=== PATIENT | female | born 1995 | race Two or more races ===

== ENCOUNTER → 2023-01-05 | Outpatient (CLI) | payer MEDICAID ==
[2023-01-05 10:46] LABS: Basophils # (auto) 0 10 ^3/uL (0-0.2); Basophils % (auto) 0.3 % (0.0-2.0); Eosinophils # (auto) 0 10 ^3/uL (0-0.8); Eosinophils % (auto) 0.2 % (0.0-7.0); Hematocrit 40.1 % (36.0-46.0); Hemoglobin 13.7 g/dL (12.2-16.2); Lymphocytes # (auto) 1.8 10 ^3/uL (0.4-5.4); Lymphocytes % (auto) 16.7 % (10.0-50.0); Mean Corpuscular Hemoglobin 31.6 pg (28.0-32.0); Mean Corpuscular Hgb Conc. 34.1 g/dL (32.0-36.0); Mean Corpuscular Volume 92.7 fL (80.0-100.0); Monocytes # (auto) 0.5 10 ^3/uL (0-1.3); Monocytes % (auto) 4.5 % (0.0-12.0); Neutrophils # (auto) 8.3 10 ^3/uL (1.6-8.6); Neutrophils % (auto) 78.3 % (37.0-80.0); Red Blood Cells 4.33 10^6/uL (4.0-5.20); Red Cell Distribution Width 13.6 % (11.8-14.3); White Blood Cell 10.6 10^3/uL (4.4-10.8)
[2023-01-05 11:42] LABS: Alcohol, Urine < 3.0 mg/dL (0-10); Amphetamine Screen, Urine NEGATIVE (NEGATIVE); Barbiturate Scree,Urine NEGATIVE (NEGATIVE); Benzodiazephine Screen, Urine NEGATIVE (NEGATIVE); Cannabinoid Screen, Urine NEGATIVE (NEGATIVE); Cocaine Screen, Urine NEGATIVE (NEGATIVE); Opiate Scree,Urine NEGATIVE (NEGATIVE); Phencyclidine Screen, Urine NEGATIVE (NEGATIVE)
[2023-01-06 08:06] LABS: RPR Non Reactive (Non Reactive)
== END | disposition home or self-care (01) ==
LOC: LAB 10:07
PROVIDERS: ATTEND Obstetrics & Gynecology
DX: Z31.430 Encounter of female for testing for genetic disease carrier status for procreative management (principal); N39.0 Urinary tract infection, site not specified
CPT/HCPCS: 36415; 80307; 83036; 84112; 84144; 84702; 85025; 86592; 86703; 86762; 86850; 86900; 86901; 87086; 87340

== ENCOUNTER → 2023-03-15 | Outpatient (CLI) | payer MEDICAID ==
[2023-03-15 10:47] LABS: Basophils # (auto) 0 10 ^3/uL (0-0.2); Basophils % (auto) 0.3 % (0.0-2.0); Eosinophils # (auto) 0.1 10 ^3/uL (0-0.8); Eosinophils % (auto) 0.4 % (0.0-7.0); Hematocrit 38.4 % (36.0-46.0); Hemoglobin 12.7 g/dL (12.2-16.2); Lymphocytes # (auto) 2.2 10 ^3/uL (0.4-5.4); Lymphocytes % (auto) 17.6 % (10.0-50.0); Mean Corpuscular Hemoglobin 31.5 pg (28.0-32.0); Mean Corpuscular Hgb Conc. 33.1 g/dL (32.0-36.0); Monocytes # (auto) 0.7 10 ^3/uL (0-1.3); Monocytes % (auto) 5.4 % (0.0-12.0); Neutrophils # (auto) 9.3 10 ^3/uL (1.6-8.6); Neutrophils % (auto) 76.3 % (37.0-80.0); Nucleated Red Blood Cells % 0.1 %; Red Blood Cells 4.04 10^6/uL (4.0-5.20); Red Cell Distribution Width 14.1 % (11.8-14.3); White Blood Cell 12.2 10^3/uL (4.4-10.8)
== END | disposition home or self-care (01) ==
LOC: LAB 10:03
PROVIDERS: ATTEND Obstetrics & Gynecology
DX: Z34.80 Encounter for supervision of other normal pregnancy, unspecified trimester (principal); Z3A.00 Weeks of gestation of pregnancy not specified
CPT/HCPCS: 36415; 82951; 85025

== ENCOUNTER 2023-05-26 03:47 | Inpatient (IN) | payer MEDICAID ==
[2023-05-25 11:54] LABS: Basophils # (auto) 0 10 ^3/uL (0-0.2); Basophils % (auto) 0.2 % (0.0-2.0); Eosinophils # (auto) 0 10 ^3/uL (0-0.8); Eosinophils % (auto) 0.3 % (0.0-7.0); Hematocrit 39.8 % (36.0-46.0); Hemoglobin 13.5 g/dL (12.2-16.2); Lymphocytes # (auto) 1.9 10 ^3/uL (0.4-5.4); Lymphocytes % (auto) 18.7 % (10.0-50.0); Mean Corpuscular Hemoglobin 31.9 pg (28.0-32.0); Mean Corpuscular Hgb Conc. 33.8 g/dL (32.0-36.0); Mean Corpuscular Volume 94.3 fL (80.0-100.0); Monocytes # (auto) 0.6 10 ^3/uL (0-1.3); Monocytes % (auto) 5.5 % (0.0-12.0); Neutrophils # (auto) 7.8 10 ^3/uL (1.6-8.6); Neutrophils % (auto) 75.3 % (37.0-80.0); Nucleated Red Blood Cells % 0.2 %; Red Blood Cells 4.23 10^6/uL (4.0-5.20); White Blood Cell 10.3 10^3/uL (4.4-10.8)
[2023-05-25 12:17] LABS: INR 0.94 (0.9-1.15); Partial Thromboplastin Time 26.6 SEC (24.5-34.5); Prothrombin Time 9.9 sec (9.3-11.8)
[2023-05-25 12:28] LABS: Alanine Aminotransferase 13 U/L (7-40); Albumin 3.8 g/dL (3.2-4.8); Alkaline Phosphatase 136 U/L (46-116); Anion Gap 10 (5-15); Aspartate Aminotransferase 30 U/L (13-40); Bilirubin, Total 0.6 mg/dL (0.2-1.0); Calcium 8.4 mg/dL (8.5-10.1); Carbon Dioxide 23 mmol/L (20-30); Chloride 107 mmol/L (98-107); Glucose 79 mg/dL (74-106); Sodium 140 mmol/L (136-145)
[2023-05-25 12:29] LABS: Total Protein 6.4 g/dL (5.7-8.2)
[2023-05-25 12:54] LABS: Amphetamine Screen, Urine Neg (NEGATIVE)
[2023-05-25 12:55] LABS: Barbiturate Scree,Urine Neg (NEGATIVE); Benzodiazephine Screen, Urine Neg (NEGATIVE); Cannabinoid Screen, Urine Neg (NEGATIVE); Cocaine Screen, Urine Neg (NEGATIVE); Opiate Scree,Urine Neg (NEGATIVE); Phencyclidine Screen, Urine Neg (NEGATIVE)
[2023-05-25 13:05] LABS: BUN/Creatinine Ratio 10.4 (10.0-20.0); Blood Urea Nitrogen < 5 mg/dL (9-23); Potassium 2.7 mmol/L (3.5-5.1)
[2023-05-25 13:11] LABS: Urine Bacteria FEW /hpf (None Seen); Urine Blood Negative /uL (Negative); Urine Clarity Clear (Clear); Urine Color Yellow (Yellow); Urine Protein, UAD TRACE (Negative); Urine Specific Gravity 1.011 (1.001-1.035); Urine Urobilinogen Normal (Negative); Urine WBC 3 /hpf (0 - 5)
[~2023-05-26] VITALS: Ht 182.9 cm; Wt 81.0 kg
[2023-05-26] VITALS (9 sets, daily range): BP systolic 119–136; BP diastolic 70–94; PULSE 67–88; RESP 14–18; TEMP 97.8–98.4; O2SAT 96–100
[2023-05-26] MEDS: LACTATED RINGER'S 1,000 ML IV SCH ×2 (05:01→05:33)
[2023-05-26] MEDS ORDERED: ceFAZolin 1GM/50ML 50 ML IV SCH (06:00)
[2023-05-26 07:06] LABS: RPR Non Reactive (Non Reactive)
[2023-05-26] MEDS ORDERED: POTASSIUM CHL 20MEQ/100ML 100 ML IV ONE (07:30)
[2023-05-26] MEDS ORDERED: TETRACAINE 1% INJ 2 ML VIAL IJ ONE (08:26)
[2023-05-26] MEDS ORDERED: SODIUM CHLORIDE 0.9% 1,000 ML IV ONE (08:46)
[2023-05-26] MEDS ORDERED: SIMETHICONE 80 MG CHEWABLE TABLET PO PRN (09:30)
[2023-05-26] MEDS ORDERED: HYDROcodone-ACET 5/325MG TAB PO PRN ×2 (09:30)
[2023-05-26] MEDS ORDERED: IBUPROFEN 800 MG TAB PO PRN (09:30)
[2023-05-26] MEDS ORDERED: ceFAZolin 1GM/50ML 50 ML IV ONE (09:30)
[2023-05-26] MEDS ORDERED: MORPHINE SULF PF 5 MG/10 ML VIAL ONE (09:45)
[2023-05-26] MEDS ORDERED: fentaNYL CITRATE 100 MCG/2 ML VL ONE (09:45)
[2023-05-26] MEDS ORDERED: MIDAZOLAM HCL 2MG/2ML 2ml VIAL (1mg/ml) ONE (09:46)
[2023-05-26] MEDS: DOCUSATE SOD 100 MG CAP PO SCH ×2 (10:00→21:57)
[2023-05-26] MEDS ORDERED: NALOXONE HCL 0.4 MG/ML VIAL IV PRN (11:00)
[2023-05-26] MEDS ORDERED: diphenhdrAMINE HCL 50 MG/1 ML VL IV PRN (11:00)
[2023-05-26] MEDS ORDERED: ePHEDrine SULFATE 50 MG/ML AMP IV PRN (11:00)
[2023-05-26] MEDS ORDERED: HYDROmorphone HCL 2 MG/ML VL/or syr IV PRN (11:00)
[2023-05-26] MEDS ORDERED: ONDANSETRON HCL 4 MG/2 ML VIAL IV PRN (11:00)
[2023-05-26] MEDS ORDERED: DexAMETHasone SOD PHOS 10MG/1ML VIAL INJ IV PRN (11:00)
[2023-05-26] MEDS ORDERED: MIDAZOLAM HCL 2MG/2ML 2ml VIAL (1mg/ml) IV PRN (11:00)
[2023-05-26] MEDS ORDERED: LABETALOL HCL 5 MG/ML 4ML SYRINGE IV PRN (11:00)
[2023-05-26] MEDS: ceFAZolin 1GM/50ML 50 ML IV SCH ×2 (17:23→21:57)
[2023-05-26] MEDS ORDERED: PHISODERM TOP SOLN 240ML BTL TOP ONE (20:15)
[2023-05-27] VITALS (8 sets, daily range): BP systolic 124–150; BP diastolic 78–91; PULSE 79–90; RESP 17–20; TEMP 98.2–99.5; O2SAT 95–98
[2023-05-27] MEDS: ceFAZolin 1GM/50ML 50 ML IV SCH ×3 (05:37→22:35)
[2023-05-27 06:43] LABS: Basophils # (auto) 0 10 ^3/uL (0-0.2); Basophils % (auto) 0.2 % (0.0-2.0); Eosinophils # (auto) 0 10 ^3/uL (0-0.8); Eosinophils % (auto) 0.2 % (0.0-7.0); Hemoglobin 12.2 g/dL (12.2-16.2); Lymphocytes # (auto) 1.7 10 ^3/uL (0.4-5.4); Monocytes # (auto) 0.7 10 ^3/uL (0-1.3); Monocytes % (auto) 6.8 % (0.0-12.0); Neutrophils # (auto) 8.3 10 ^3/uL (1.6-8.6); Neutrophils % (auto) 76.8 % (37.0-80.0); Red Blood Cells 3.83 10^6/uL (4.0-5.20); Red Cell Distribution Width 14.1 % (11.8-14.3); White Blood Cell 10.7 10^3/uL (4.4-10.8)
[2023-05-27 06:57] LABS: Alanine Aminotransferase 13 U/L (7-40); Albumin 3.1 g/dL (3.2-4.8); Alkaline Phosphatase 120 U/L (46-116); Anion Gap 9 (5-15); Aspartate Aminotransferase 48 U/L (13-40); Bilirubin, Total 0.8 mg/dL (0.2-1.0); Calcium 8.1 mg/dL (8.5-10.1); Carbon Dioxide 24 mmol/L (20-30); Chloride 107 mmol/L (98-107); Glucose 74 mg/dL (74-106); Sodium 140 mmol/L (136-145); Total Protein 5.3 g/dL (5.7-8.2)
[2023-05-27 07:08] LABS: Blood Urea Nitrogen < 5 mg/dL (9-23); Potassium 2.6 mmol/L (3.5-5.1)
[2023-05-27] MEDS: DOCUSATE SOD 100 MG CAP PO SCH ×2 (10:00→22:35)
[2023-05-27] MEDS ORDERED: POTASSIUM CHLORIDE 60 MEQ, LIDOCAINE 1% (LOCAL ANESTH.) 6 ML in SODIUM CHL 0.9% 500 ML IV ONE (11:30)
[2023-05-27] MEDS ORDERED: POTASSIUM EFFERVESENT TAB 25 MEQ PO ONE (11:30)
[2023-05-27] MEDS: LACT. RINGERS/OXYTOCIN 20UNITS 1,000 ML IV SCH ×4 (13:19→14:55)
[2023-05-27] MEDS: MAGNESIUM SULFATE 1GM/100ML 100 ML IV SCH ×2 (13:51→14:50)
[2023-05-27 22:06] LABS: Treponema pallidum Ab (FTA-Ab) Non Reactive (Non Reactive)
[2023-05-27 22:36] LABS: Potassium 3.2 mmol/L (3.5-5.1)
[2023-05-27 22:43] LABS: Magnesium 1.8 mg/dL (1.6-2.6)
[2023-05-28] MEDS ORDERED: IBUP-1455 PO (00:54)
[2023-05-28] MEDS ORDERED: DOCU-265 PO (00:54)
[2023-05-28] MEDS ORDERED: HYDR-4902 PO ×2 (00:54→12:56)
[2023-05-28 05:00] VITALS: BP 142/72; PULSE 70; RESP 18; TEMP 98.2; O2SAT 98
[2023-05-28] MEDS: ceFAZolin 1GM/50ML 50 ML IV SCH ×2 (05:16→14:00)
[2023-05-28 05:56] LABS: Chloride 107 mmol/L (98-107); Potassium 3.2 mmol/L (3.5-5.1); Sodium 138 mmol/L (136-145)
[2023-05-28 05:57] LABS: Anion Gap 7 (5-15); Calcium 8.5 mg/dL (8.7-10.4); Carbon Dioxide 24 mmol/L (20-30)
[2023-05-28 06:02] LABS: Glucose 81 mg/dL (74-106)
[2023-05-28 06:22] LABS: Blood Urea Nitrogen < 5 mg/dL (9-23)
[2023-05-28 08:00] VITALS: PULSE 68; RESP 18
[2023-05-28] MEDS: DOCUSATE SOD 100 MG CAP PO SCH (10:01)
[2023-05-28 10:30] VITALS: BP 136/78; PULSE 84; RESP 17; TEMP 98.6; O2SAT 95
[2023-05-28] MEDS ORDERED: POTASSIUM EFFERVESENT TAB 25 MEQ GT ONE (11:00)
[2023-05-28 11:02] VITALS: BP 142/72; PULSE 70; RESP 18; TEMP 37; O2SAT 98
[2023-05-28] MEDS ORDERED: IBUP-1454 PO (12:29)
[2023-05-28] MEDS ORDERED: DOCU-94 PO (12:29)
[2023-05-28 15:03] VITALS: BP 135/87; PULSE 61; RESP 18; TEMP 98.4; O2SAT 98
== END 2023-05-28 16:58 | disposition home or self-care (01) | DRG 540 ==
LOC: UNDOADMIN 03:47 → LDRP 03:47 → TELE-CENTR 05-27 13:08
PROVIDERS: ADMIT Obstetrics & Gynecology; ATTEND Obstetrics & Gynecology
PROC: 10D00Z1 Extraction of Products of Conception, Low, Open Approach (ICD-10-PCS; principal; 2023-05-26 09:34)
DX: O34.211 Maternal care for low transverse scar from previous cesarean delivery (principal); E83.42 Hypomagnesemia; E87.6 Hypokalemia; Z3A.39 39 weeks gestation of pregnancy; Z37.0 Single live birth; O99.285 Endocrine, nutritional and metabolic diseases complicating the puerperium
CPT/HCPCS: 36415; 59025; 80048; 80053; 80307; 81001; 81002; 83735; 84132; 85025; 85610; 85730; 86592; 86850; 86900; 86901; 94762; 96360; 96361; 96365; 96366; G0378; J0690; J2001; J2250; J3480